=== PATIENT | male | born 1945 | race Caucasian/White ===

== ENCOUNTER → 2017-07-06 | Outpatient (CLI) | payer MEDICARE, OTHER ==
[~2017-07-06] MED LIST: GADOBUTROL 10 MMOL/10 ML PFS ONE
== END | disposition home or self-care (01) ==
LOC: CFH 09:09
PROVIDERS: ATTEND Orthopaedic Surgery Orthopaedic Surgery of the Spine
DX: C41.4 Malignant neoplasm of pelvic bones, sacrum and coccyx (principal); N32.89 Other specified disorders of bladder; M51.27 Other intervertebral disc displacement, lumbosacral region
CPT/HCPCS: 72158; 82565; A9585

== ENCOUNTER → 2017-07-07 | Outpatient (CLI) | payer MEDICARE, OTHER ==
[~2017-07-07] MED LIST changes: -GADOBUTROL 10 MMOL/10 ML PFS ONE; +OMNIPAQUE 350 MG/ML, 100ML BOTTLE ONE
== END | disposition home or self-care (01) ==
LOC: RAD 08:31
PROVIDERS: ATTEND Orthopaedic Surgery Orthopaedic Surgery of the Spine
DX: N32.89 Other specified disorders of bladder (principal); M51.37 Other intervertebral disc degeneration, lumbosacral region; C41.4 Malignant neoplasm of pelvic bones, sacrum and coccyx
CPT/HCPCS: 72193; Q9967

== ENCOUNTER → 2017-11-17 | Outpatient (CLI) | payer MEDICARE, OTHER | LOC: PETCFH 07:34 | PROVIDERS: ATTEND Internal Medicine Hematology & Oncology | DX: Z02.9 Encounter for administrative examinations, unspecified (principal) ==

== ENCOUNTER → 2017-11-18 | Outpatient (CLI) | payer MEDICARE, OTHER | END | disposition home or self-care (01) | LOC: PETCFH 07:44 | PROVIDERS: ATTEND Internal Medicine Hematology & Oncology | DX: C41.4 Malignant neoplasm of pelvic bones, sacrum and coccyx (principal) | CPT/HCPCS: 78816; A9552 ==

== ENCOUNTER → 2018-02-23 | Outpatient (CLI) | payer MEDICARE, OTHER | END | disposition home or self-care (01) | LOC: PETCFH 13:25 | PROVIDERS: ATTEND Internal Medicine Hematology & Oncology | DX: C83.39 Diffuse large B-cell lymphoma, extranodal and solid organ sites (principal) | CPT/HCPCS: 78815; A9552 ==

== ENCOUNTER → 2018-06-09 | Outpatient (CLI) | payer MEDICARE, OTHER | END | disposition home or self-care (01) | LOC: CFH 12:18 | PROVIDERS: ATTEND Internal Medicine Hematology & Oncology | DX: N40.0 Benign prostatic hyperplasia without lower urinary tract symptoms (principal) | CPT/HCPCS: 71260; 74177; Q9967 ==

== ENCOUNTER 2018-06-16 06:07 | Day surgery (SDC) | payer MEDICARE, OTHER ==
[~2018-06-16] VITALS: Ht 180.3 cm; Wt 87.0 kg
[2018-06-16 06:59] VITALS: BP 139/82
[2018-06-16] MEDS ORDERED: SODIUM CHLORIDE 0.9% 1,000 ML IV SCH (07:02)
[2018-06-16] MEDS ORDERED: LIDOCAINE-MPF 2%, 2ML ONE (07:14)
[2018-06-16] MEDS ORDERED: FENTANYL PF 100 MCG/2ML ONE (07:42)
[2018-06-16] MEDS ORDERED: MIDAZOLAM 1 MG/ML, 5ML ONE (07:42)
[2018-06-16] MEDS ORDERED: NALOXONE 1 MG/ML, 2ML ONE (07:43)
[2018-06-16] MEDS ORDERED: FLUMAZENIL 0.1 MG/1 ML, 5ML ONE (07:43)
== END 2018-06-16 10:00 | disposition home or self-care (01) ==
LOC: OUT 06:07
PROVIDERS: ATTEND Internal Medicine Hematology & Oncology
DX: Z45.2 Encounter for adjustment and management of vascular access device (principal); C83.30 Diffuse large B-cell lymphoma, unspecified site; G89.3 Neoplasm related pain (acute) (chronic); G62.2 Polyneuropathy due to other toxic agents; I10 Essential (primary) hypertension; Z79.899 Other long term (current) drug therapy; Z98.890 Other specified postprocedural states; Z87.891 Personal history of nicotine dependence
CPT/HCPCS: 36590; 77001; 99156; 99157; J2250; J3010; J3490; J2310

== ENCOUNTER → 2020-06-26 | Outpatient (CLI) | payer MEDICARE, OTHER | END | disposition home or self-care (01) | LOC: CFH 09:46 | PROVIDERS: ATTEND Internal Medicine Hematology & Oncology | DX: C83.39 Diffuse large B-cell lymphoma, extranodal and solid organ sites (principal); K44.9 Diaphragmatic hernia without obstruction or gangrene; E04.2 Nontoxic multinodular goiter; K76.89 Other specified diseases of liver | CPT/HCPCS: 71260; 74177; 82565; Q9967 ==